=== PATIENT | male | born 1975 | race Caucasian/White ===

== ENCOUNTER 2020-12-23 19:39 | Inpatient (IN) | payer MEDICAID ==
[2020-12-22 22:45] VITALS: BP 106/68
[~2020-12-23] VITALS: Ht 188 cm; Wt 85.7 kg
--- NOTE | 2020-12-23 19:39 | NUR ---
[id number] FROM [facility] FOR CP, MIDSTERNAL, NON RADIATING X 30MINS RECORDS MANAGEMENT ANALYST GIVEN [id number] 2SPR NTG WITH RELIEF 03/04, PT AAOX2-3, DENIES ANY SOB. PLACED ON MONITOR, GOWNED, VSS. NOT IN ACUTE DISTRESS, PENDING ER PROVIDER HARRY
--- NOTE | 2020-12-23 20:03 | NUR ---
BLOOD COLLECTED AND SENT TO LAB
--- NOTE | 2020-12-23 20:04 | NUR ---
WINE BLENDER AT BS
[2020-12-23 20:12] LABS: BASOPHILS # (AUTO) 0.1 /CMM (0.0-0.2); BASOPHILS % (AUTO) 0.8 % (0.0-2.0); HEMATOCRIT 38 % (39-51); LYMPHOCYTES # (AUTO) 4.1 /CMM (0.8-4.8); LYMPHOCYTES % (AUTO) 48.3 % (20.0-44.0); MEAN CORPUSCULAR HGB CONC 34 g/dl (31.0-36.0); MEAN CORPUSCULAR VOLUME 92 fL (80-96); MONOCYTES # (AUTO) 0.6 /CMM (0.1-1.30); MONOCYTES % (AUTO) 7.2 % (2.0-12.0); NEUTROPHILS # (AUTO) 3.5 /CMM (1.8-8.9); NEUTROPHILS % (AUTO) 41.7 % (43.0-81.0); PLATELET COUNT (AUTO) 267 /CMM (150-450); RED BLOOD CELL COUNT(AUTO) 4.15 MIL/uL (4.5-6.0); WHITE BLOOD COUNT (AUTO) 8.4 K/uL (4.3-11.0)
[2020-12-23 20:21] LABS: CALCIUM, SERUM 8.7 mg/dL (8.5-10.1); CARBON DIOXIDE 27 mmol/L (21-32); CHLORIDE 101 mmol/L (98-107); CREATININE 1.1 mg/dL (0.6-1.3); GLUCOSE 89 mg/dL (74-106); POTASSIUM 3.7 mmol/L (3.5-5.1); SODIUM SERUM 139 mmol/L (136-145); UREA NITROGEN, BLOOD 12 mg/dL (7-18)
[2020-12-23] MEDS ORDERED: MAG HYDROX/AL HYDROX/SIMETH 30 ML UDC PO PRN (21:30)
[2020-12-23] MEDS ORDERED: Z GUARD REMEDY 2 OZ OINT TP PRN (21:30)
[2020-12-23] MEDS ORDERED: ONDANSETRON HCL/PF 4 MG/2 ML VIAL IVP PRN (21:30)
[2020-12-23] MEDS ORDERED: ACETAMINOPHEN 325 MG TABLET PO PRN (21:30)
[2020-12-23] MEDS ORDERED: MAGNESIUM HYDROXIDE 30 ML UDC PO PRN (21:30)
[2020-12-23] MEDS ORDERED: ZOLPIDEM TARTRATE 5 MG TABLET PO PRN (21:30)
--- NOTE | 2020-12-23 22:27 | NUR ---
REPORT GIVEN TO JANET GALVEZ FOR BRIANNA PT WILL BE TRANSPORTED TO 1ST FLOOR
--- NOTE | 2020-12-23 22:39 | NUR ---
Pt to 103 via jayne with emt and Babatunde GALVEZ
--- NOTE | 2020-12-23 22:45 | NUR ---
RN NOTE PT ARRIVED TO UNIT FROM ER VIA GURNEY UNDER ACLS PROTOCOL. PT IS ALERT AND ORIENTED X 3. SLIGHTLY SLOW TO RESPOND TO QUESTIONS BUT ANSWERS ALL CORRECTLY. ON ROOM AIR, RESPIRATIONS UNLABORED, DENIES DIFFICULTY BREATHING, WITH COMPLAINT OF 4/10 CHEST PAIN NON RADIATING, PT ALSO REQUESTED SLEEPING MEDICATION, WILL ADMINISTER PRN ORDERED, PLACED PT ON GRANTS AND CONTRACTS ASSISTANT SHOWING NSR 60S. COMPREHENSIVE BODY ASSESSMENT COMPLETED, SKIN INTACT EXCEPT WITH RED BUMP ON LEFT UNDERARM, PICTURE TAKEN, WITH LEFT HAND 20G IV PATENT AND INTACT. PLAN OF CARE DISCUSSED, CALL LIGHT WITHIN REACH, SAFETY MEASURES IN PLACE PER PROTOCOL
[2020-12-23] MEDS: HYDROCODONE/APAP 5/325MG TABLET PO PRN (22:53)
[2020-12-24] VITALS (9 sets, daily range): BP systolic 114–140; BP diastolic 65–80
--- NOTE | 2020-12-24 00:26 | NUR ---
RN NOTE SEEN AND EXAMINED BY ARELIS LEE MOLDING PRESS OPERATOR AT BEDSIDE.
--- NOTE | 2020-12-24 01:46 | NUR ---
RN NOTE PT CALLED FOR ASSISTANCE. PT STATES THAT HE DOES NOT REMEMBER WHERE HE IS AND WHY HE IS HERE. REORIENTED PT. EXPLAINED THAT PT WAS BROUGHT IN FROM [facility] BECAUSE HE WAS COMPLAINING OF CHEST PAIN AND THAT HE IS ADMITTED TO THE HOSPITAL FOR OBSERVATION. PT DENIES THAT HE CAME FROM A [facility] AND THAT HE DOES NOT HAVE CHEST PAIN. WILL CONTINUE TO MONITOR.
--- NOTE | 2020-12-24 05:58 | NUR ---
RN NOTE PT CALLED AGAIN ASKING FOR HELP. PT ASKED "WHERE AM I? WHAT AM I DOING HERE?" RN PROVIDED REORIENTATION AND EXPLAINED THE PLAN OF CARE. PT VERBALIZED UNDERSTANDING. PT DENIES CHEST PAIN AT THIS TIME. PT AMBULATED TO THE BATHROOM WITH STANDBY ASSISTANCE AND WENT BACK TO BED. WILL CONTINUE TO MONITOR.
[2020-12-24 06:22] LABS: BASOPHILS # (AUTO) 0.1 /CMM (0.0-0.2); BASOPHILS % (AUTO) 0.9 % (0.0-2.0); EOSINOPHILS % (AUTO) 2.8 % (0.0-6.0); HEMATOCRIT 40 % (39-51); HEMOGLOBIN 13.6 g/dL (13.5-17.5); LYMPHOCYTES # (AUTO) 2.7 /CMM (0.8-4.8); LYMPHOCYTES % (AUTO) 41.6 % (20.0-44.0); MEAN CORPUSCULAR HGB CONC 34 g/dl (31.0-36.0); MEAN CORPUSCULAR VOLUME 92 fL (80-96); MONOCYTES # (AUTO) 0.5 /CMM (0.1-1.30); NEUTROPHILS # (AUTO) 3.1 /CMM (1.8-8.9); NEUTROPHILS % (AUTO) 47.7 % (43.0-81.0); PLATELET COUNT (AUTO) 273 /CMM (150-450); WHITE BLOOD COUNT (AUTO) 6.5 K/uL (4.3-11.0)
[2020-12-24 06:46] LABS: CALCIUM, SERUM 9.2 mg/dL (8.5-10.1); CREATININE 0.9 mg/dL (0.6-1.3); PHOSPHORUS 3.5 mg/dL (2.5-4.9); POTASSIUM 3.6 mmol/L (3.5-5.1)
--- NOTE | 2020-12-24 07:15 | NUR ---
GOLF TOURNAMENT CONSULTANT NOTE RECEIVED REPORT FROM PM NURSE.PATIENT IN BED SLEEPING.ABLE TO WAKE UP WHILE CALLING NAME.ADMITTED WITH DIAGNOSIS OF CHEST PAIN .ON TELE MONITOR SR WITH HR 60.ON ROOM AIR.NO SOB NO DISTRESS NOTED.IV ON L HAND # 20 .INTACT AND PATENT.FALL PRECAUTIONS IN PLACE.BED ALARM ON BED IS LOW AND IN LOCKED POSITION WITH SIDE RAILS UP.WILL CONTINUE TO MONITOR.
[2020-12-24] MEDS ORDERED: HALO2TAB PO (08:47)
[2020-12-24] MEDS ORDERED: HYDR-4303 PO (08:47)
[2020-12-24] MEDS ORDERED: LORA-259 PO (08:47)
[2020-12-24] MEDS ORDERED: ALPR0.5T PO (08:47)
[2020-12-24] MEDS ORDERED: ATORVASTATIN 40 MG TABLET PO SCH (09:00)
[2020-12-24] MEDS ORDERED: ASPIRIN 81 MG TAB.CHEW PO SCH (09:00)
[2020-12-24] MEDS ORDERED: NICOTINE PATCH (21MG) 21 MG PATCH.TD24 TD SCH (09:00)
--- NOTE | 2020-12-24 09:00 | NUR ---
AUTOMOTIVE PRODUCT ENGINEER NOTE SEEN BY DATA REVIEW SPECIALIST ANASTACIA ,UPDATED ABOUT PATIENT CONDITION.PATIENT WAS TELLING THAT HE IS RESIDING IN [facility] AND NEED TO BE TRANSFERRED PER DATA REVIEW SPECIALIST.DATA REVIEW SPECIALIST MADE AWARE THAT PATIENT IS TALKING NORMALLY BUT HE HAS SOME PERIODS OF CONFUSION.BUS INSPECTOR MADE AWARE. PER BUS INSPECTOR PATIENT SHE TALK TO [facility] HE HAS PERIODS OF CONFUSION.HE DO NOT NEED TO BE TRANSFERRED.HE GOES BACK TO SAME PLACE HE COMES FROM.WILL CONTINUE TO MONITOR.NEW IV LINE INSERTED FOR CTA IN LAC#20.GOOD BLOOD RETURN NOTED.WILL CONTINUE TO MONITOR.
[2020-12-24] MEDS: HYDROCODONE/APAP 5/325MG TABLET PO PRN (11:01)
[2020-12-24] MEDS: NITROGLYCERIN 0.4 MG/TAB BOTTLE SL PRN ×3 (11:13→11:23)
--- NOTE | 2020-12-24 12:10 | NUR ---
RN NOTE 1105-PATIENT C/O CHEST PAIN .PATIENT IS ALERT ORIENTED WITH PERIODS OF CONFUSION.ABLE TO DO DAILY ACTIVITIES WITHOUT ANY INTERRUPTION.NOT RADIATING TO L ARM OR SHOULDER /NECK.PAIN LOCATED IN LEFT LOWER CHEST.ABDOMEN IS GASEOUS WHILE PERCUSSION.MYLANTA GIVEN.PRN NORCO GIVEN FOR PAIN IN THE ELEVATED RED AREA UNDER LEFT ARM PIT AND ALSO FOR PAIN.AWAITING WOUND CONSULT.NITRO GIVEN X 3 DOSES.STAT EKG DONE . MADE AWARE EKG RESULT AND PATIENT CONDITION .STILL C/O PAIN AFTER NITRO.NEW ORDER TO PLACE PATIENT BACK TO TELE MONITOR. SR HR 67 ON MONITOR. MADE AWARE THAT CTA @ 1 PM.PATIENT SIGNED FOR THE PROCEDURE.SPOKE TO BRINDA ALDANA RESPONSIBLE REPUBLICAN PER PATIENT .MADE AWARE ABOUT PATIENT CONDITION AND HE GAVE PERMISSION TO DO PROCEDURE CTA DOCTOR ORDERED.HE GO OVER HISTORY OF THE PATIENT.ASSURANCE GIVEN .TOLD THAT WILL LET HIM KNOW ONCE THE RESULT IS BACK.WILL CONTINUE TO MONITOR.
[2020-12-24] MEDS ORDERED: CT SWABBABLE VALVE TRANS SET 1 EA INFUS.SET MC ONE (12:34)
[2020-12-24] MEDS ORDERED: IV NS 0.9% 250 ML IV ONE (12:34)
[2020-12-24] MEDS ORDERED: IOHEXOL-350 100 ML VIAL IV ONE (12:34)
[2020-12-24] MEDS ORDERED: METOPROLOL TARTRATE INJ 5 MG/5 ML AMPUL ONE (12:36)
--- NOTE | 2020-12-24 13:01 | NUR ---
PROCESSING SPECIALIST NOTE PATIENT PICKED UP FOR CTA .VITAL SIGNS STABLE.NO SOB NOTED.STILL COMPLAINING OF CHEST PAIN.TOLD GETTING BETTER SLOWLY.C/O MORE PAIN WHILE PALPATING THE CHEST .PATIENT HAS A RED ELEVATED AREA IN THE ARM PIT.PATIENT WAS ABLE TO MOVE FROM BED TO WHEEL CHAIR WITH ASSIST.
[2020-12-24] MEDS ORDERED: NITROGLYCERIN 0.4 MG/TAB BOTTLE ONE (13:30)
[2020-12-24] MEDS ORDERED: NITROGLYCERIN 0.4 MG/TAB BOTTLE SL ONE (14:00)
[2020-12-24] MEDS ORDERED: IV NS 0.9% 500 ML IV PRN (14:00)
[2020-12-24] MEDS ORDERED: METOPROLOL TARTRATE INJ 5 MG/5 ML AMPUL IVP ONE (14:00)
--- NOTE | 2020-12-24 14:11 | NUR ---
MULTI SPINDLE OPERATOR NOTE PATIENT BACK FROM CTA IN STABLE CONDITION.TOLD THAT CHEST PAIN IS BETTER.VITAL SIGNS STABLE.PAIN LEVEL 3/10.WILL CONTINUE TO MONITOR.
--- NOTE | 2020-12-24 17:02 | NUR ---
RN NOTE RELAYED CTA RESULT TO . PER NIHARIKA WISE PATIENT CAN BE DISCHARGED.MUSIC LIBRARY ASSISTANT SHANTA MADE AWARE ASLO NOTIFIED THAT PATIENT HAS A LUMP IN ARM PIT IS LITTLE SWOLLEN AND RED ,NOT OPEN.AWAITING WOUND CONSULT .OK TO DISCHARGE .NO NEW MEDS.CONTINUE HOME MEDS.
[2020-12-24] MEDS ORDERED: HALOPERIDOL 5 MG TABLET PO SCH (17:57)
[2020-12-24] MEDS ORDERED: ALPRAZOLAM 0.5 MG TABLET PO PRN (18:00)
[2020-12-24] MEDS ORDERED: HYDROCODONE/APAP 5/325MG TABLET PO PRN (18:00)
[2020-12-24] MEDS ORDERED: LORAZEPAM 1 MG TABLET PO PRN (18:00)
--- NOTE | 2020-12-24 18:00 | NUR ---
PATIENT IS UNABLE TO COLLECT URINE.URINAL AT BEDSIDE.BRP.PATIENT REMINDED TO COLLECT URINE.
--- NOTE | 2020-12-24 18:08 | NUR ---
REPORT GIVEN TO [facility].SPOKE TO TERRIE WIN.MADE AWARE TO CONTINUE SAME MEDICATION.NO NEW ORDERS.WILL ATTACH LAB AND TEST RESULT.PATIENT RESPONSIBLE REPUBLICAN MR. PARRY MADE AWARE ABOUT TEST RESULT AND DISCHARGE.WILL CONTINUE TO MONITOR.
--- NOTE | 2020-12-24 18:23 | NUR ---
RN CLOSING NOTE PATIENT READY TO BE DISCHARGED.CARBURETOR EXPERT TIME IS @1999.REPORT GIVEN TO FACILITY.PATIENT IS ALERT ORIENTED WITH PERIODS OF CONFUSION.VITAL SIGNS STABLE.WILL ENDORSE TO PM NURSE FOR BRIANNA.
--- NOTE | 2020-12-24 19:30 | NUR ---
RN NOTE RECEIVED PT IN BED, ALERT WITH EPISODE OF CONFUSION, REORIENTED TO PLACE AND SITUATION. TELE MONITOR SHOWS SR WITH HR OF 63. NO S/SX OF DISTRESS NOTED. DENIES ANY PAIN AT THIS TIME. AWAITING FOR DISCHARGE. ALL SAFETY MEASURES IMPLEMENTED PER PROTOCOL, CALL LIGHT WITHIN REACH BED LOCKED IN LOWEST POSITION.
--- NOTE | 2020-12-24 20:23 | NUR ---
RN NOTE PT DISCHARGE TO [facility] PICKED UP BY 2 EMT FROM [facility]. NO SIGNS OF DISTRESS, AFEBRILE. VS STABLE. BP 127/77 HR 64 R 20 O2SAT 97 %. DENIES PAIN. Addendum: 12/24/20 at 2026 by RAFITA ZIMMER RN IV LINES REMOVED, NO SIGNS OF INFECTION NOTED.
[2020-12-27] MEDS ORDERED: MORPHINE SULFATE INJ 4 MG/ML DISP.SYRIN ONE (04:03)
[2020-12-27] MEDS ORDERED: ONDANSETRON HCL/PF 4 MG/2 ML VIAL ONE (04:03)
== END 2020-12-25 02:07 | DRG 198 ==
LOC: ER 19:45 → TELE 22:15 → TELE1 22:23 → MEDSG1 12-24 08:46 → TELE1 12-24 12:09
PROVIDERS: ADMIT Nurse Practitioner Acute Care; ATTEND Nurse Practitioner Acute Care
DX: I24.9 Acute ischemic heart disease, unspecified (principal); I42.9 Cardiomyopathy, unspecified; D63.8 Anemia in other chronic diseases classified elsewhere; G40.909 Epilepsy, unspecified, not intractable, without status epilepticus; I25.2 Old myocardial infarction; Z86.73 Personal history of transient ischemic attack (TIA), and cerebral infarction without residual deficits; Z87.891 Personal history of nicotine dependence; F99 Mental disorder, not otherwise specified; F10.21 Alcohol dependence, in remission; F19.21 Other psychoactive substance dependence, in remission; Z20.822 Contact with and (suspected) exposure to COVID-19; Z86.69 Personal history of other diseases of the nervous system and sense organs
CPT/HCPCS: 36415; 71045-TC; 75574; 80048-TC; 80061-TC; 83735-TC; 84100-TC; 84484-TC; 85025-TC; 87081-TC; 93307-TC; C9803; G0378; J2270; J2405; J3490; J7050; Q9967; U0003

== ENCOUNTER 2020-12-27 03:22 | Emergency (ER) | payer MEDICAID ==
[~2020-12-27] VITALS: Ht 182.9 cm; Wt 81.6 kg
[~2020-12-27 03:22] MED LIST: ALPR0.5T PO; HALO2TAB PO; HYDR-4303 PO; LORA-259 PO
--- NOTE | 2020-12-27 03:32 | NUR ---
pt bibra from [facility] c/o stabbing chest pain that radiates to left arm.Pt aaox4 breathing evenly and unlabored. Pt unsure of onset of pain. Pt attached to monitor and pox. Pt skin warm, dry, and intact. Pt given blanket and call light within reach
--- NOTE | 2020-12-27 04:15 | NUR ---
blood drawn and sent to lab
[2020-12-27 04:19] LABS: BASOPHILS % (AUTO) 0.7 % (0.0-2.0); EOSINOPHILS % (AUTO) 2.7 % (0.0-6.0); HEMATOCRIT 42 % (39-51); HEMOGLOBIN 13.8 g/dL (13.5-17.5); LYMPHOCYTES # (AUTO) 2.9 /CMM (0.8-4.8); MEAN CORPUSCULAR HGB CONC 33 g/dl (31.0-36.0); MEAN CORPUSCULAR VOLUME 93 fL (80-96); MONOCYTES # (AUTO) 0.4 /CMM (0.1-1.30); MONOCYTES % (AUTO) 6.8 % (2.0-12.0); NEUTROPHILS # (AUTO) 2.7 /CMM (1.8-8.9); NEUTROPHILS % (AUTO) 43.8 % (43.0-81.0); PLATELET COUNT (AUTO) 273 /CMM (150-450); RED BLOOD CELL COUNT(AUTO) 4.48 MIL/uL (4.5-6.0); WHITE BLOOD COUNT (AUTO) 6.2 K/uL (4.3-11.0)
[2020-12-27 04:26] LABS: CARBON DIOXIDE 28 mmol/L (21-32); CHLORIDE 105 mmol/L (98-107); GLUCOSE 94 mg/dL (74-106); POTASSIUM 4.6 mmol/L (3.5-5.1); SODIUM SERUM 140 mmol/L (136-145); UREA NITROGEN, BLOOD 10 mg/dL (7-18)
[2020-12-27] MEDS ORDERED: ONDANSETRON HCL/PF 4 MG/2 ML VIAL IVP ONE (04:30)
[2020-12-27] MEDS ORDERED: MORPHINE SULFATE INJ 2 MG/ML DISP.SYRIN IV ONE (04:30)
--- NOTE | 2020-12-27 06:04 | NUR ---
CALLED [facility] FOR BLS HATCH SUPERVISOR ETA 30-45MIN
--- NOTE | 2020-12-27 06:07 | NUR ---
CALLED [facility] AND GAVE REPORT TO ELOY FOR BRIANNA.
--- NOTE | 2020-12-27 06:50 | NUR ---
Patient discharged to home in stable condition. Written and verbal after care instructions given. Patient verbalizes understanding of instruction. IV removed. Catheter intact and site benign. Pressure and 4x4 applied to site. No bleeding noted. Gave report to ems with dc paperwork
[2020-12-27 07:02] VITALS: BP 118/78
== END 2020-12-27 06:50 ==
LOC: ER 03:24
DX: R07.89 Other chest pain (principal); Z79.899 Other long term (current) drug therapy
CPT/HCPCS: 36415; 71045-TC; 80048-TC; 84484-TC; 85025-TC

== ENCOUNTER 2021-01-05 18:16 | Emergency (ER) | payer MEDICAID, OTHER ==
[~2021-01-05] VITALS: Ht 175.3 cm; Wt 90.3 kg
--- NOTE | 2021-01-05 18:25 | NUR ---
[id number] [facility] B[facility] FOR WITNESSED SEIZURE, STILL SEIZING UPON EMS ARRIVAL VERSED 5MG GIVEN IVP SECURITY OPERATIONS MANAGER. BG 174. PATIENT STILL POST-ICTAL. NON-VERBAL. ON O2 5LPM WITH SPO2 OF 93%, INCREASED TO 6LPM. DR. RIBEIRO AT [facility] FOR EVAL.
[2021-01-05] MEDS ORDERED: LEVETIRACETAM (500MG) 1,000 MG in IV NS 0.9% 100 ML IV ONE (18:30)
[2021-01-05 18:32] LABS: BASOPHILS % (AUTO) 0.4 % (0.0-2.0); EOSINOPHILS % (AUTO) 1.9 % (0.0-6.0); HEMATOCRIT 43 % (39-51); HEMOGLOBIN 14.4 g/dL (13.5-17.5); LYMPHOCYTES # (AUTO) 3.9 /CMM (0.8-4.8); LYMPHOCYTES % (AUTO) 36.1 % (20.0-44.0); MEAN CORPUSCULAR HGB CONC 33 g/dl (31.0-36.0); MEAN CORPUSCULAR VOLUME 93 fL (80-96); MONOCYTES # (AUTO) 0.7 /CMM (0.1-1.30); MONOCYTES % (AUTO) 6.6 % (2.0-12.0); PLATELET COUNT (AUTO) 361 /CMM (150-450); RED BLOOD CELL COUNT(AUTO) 4.69 MIL/uL (4.5-6.0); WHITE BLOOD COUNT (AUTO) 10.9 K/uL (4.3-11.0)
--- NOTE | 2021-01-05 18:34 | NUR ---
BLOOD DRAWN AND SENT TO LAB. URINE SPECIMEN OBTAINED VIA STERILE TECHNIQUE AND SENT TO LAB.
--- NOTE | 2021-01-05 18:42 | NUR ---
PATIENT TAKEN TO CT.
[2021-01-05 18:49] LABS: ALANINE AMINOTRANSFERASE 20 U/L (12-78); ALBUMIN 4.2 g/dL (3.4-5.0); ALCOHOL, BLOOD < 3 mg/dL (0-0); ALKALINE PHOSPHATASE 69 U/L (46-116); ASPARTATE AMINOTRANSFERASE 17 U/L (15-37); BILIRUBIN,DIRECT 0.1 mg/dL (0.0-0.2); BILIRUBIN,TOTAL 0.4 mg/dL (0.2-1.0); CALCIUM, SERUM 9.2 mg/dL (8.5-10.1); CARBON DIOXIDE 20 mmol/L (21-32); CHLORIDE 99 mmol/L (98-107); CREATININE 1.5 mg/dL (0.6-1.3); GLUCOSE 226 mg/dL (74-106); POTASSIUM 3.3 mmol/L (3.5-5.1); SODIUM SERUM 138 mmol/L (136-145); TOTAL PROTEIN, SERUM 8.1 g/dL (6.4-8.2); UREA NITROGEN, BLOOD 10 mg/dL (7-18)
--- NOTE | 2021-01-05 18:52 | NUR ---
PATIENT IS MORE RESPONSIVE NOW, ABLE TO ANSWER TO SELF, PLACE AND YEAR.
--- NOTE | 2021-01-05 20:08 | NUR ---
FACESHEET AND CLINICALS FAXED TO [facility].
--- NOTE | 2021-01-05 20:53 | NUR ---
TRANSFER INFO: PT GOING TO [facility], ACCEPTED BY DR GILBERT/DR GONZALEZ, ROOM 4407 BED 1, RN FOR REPORT [phone] EXT [phone], [facility] ETA 2200
--- NOTE | 2021-01-05 21:07 | NUR ---
REPORT GIVEN TO CINDY GALVEZ AT [facility].
--- NOTE | 2021-01-05 22:50 | NUR ---
CALLED [facility] FOR UPDATED ETA, DELAYED 1 HOUR
[2021-01-06 00:30] VITALS: BP 139/80
--- NOTE | 2021-01-06 01:00 | NUR ---
PT LEFT TO [facility], CCT TRANSPORT, REPORT GIVEN TO RN. PT LEFT IN STABLE CONDITION
== END 2021-01-06 01:00 | disposition short-term general hospital (02) ==
LOC: ER 18:20
DX: G40.409 Other generalized epilepsy and epileptic syndromes, not intractable, without status epilepticus (principal); G08 Intracranial and intraspinal phlebitis and thrombophlebitis; I42.4 Endocardial fibroelastosis; R00.0 Tachycardia, unspecified; Z20.822 Contact with and (suspected) exposure to COVID-19; G93.40 Encephalopathy, unspecified
CPT/HCPCS: 36415; 70450; 71045; 80048; 80076; 80185; 80307; 80320; 82962; 85025; 85730; 87081; 87426; 93005; 96365; 99291; C9803; J1953; J7030; G0480

== ENCOUNTER 2021-01-25 06:26 | Emergency (ER) | payer OTHER ==
[~2021-01-25] VITALS: Ht 182.9 cm; Wt 86.2 kg
[2021-01-25] MEDS ORDERED: IV NS 0.9% 1,000 ML BAG IV ONE (07:00)
--- NOTE | 2021-01-25 07:05 | NUR ---
PT WAS BIBRA FOR C.O CONFUSION. PT ALERT AND RESPONSIVE, REMAINED CALM AND COOPERATIVE. IN ER BED 9, ON MONITOR. VSS. DENIED SI/HI WILL CONT TO MONITOR ,
[2021-01-25 07:12] LABS: BASOPHILS # (AUTO) 0.1 /CMM (0.0-0.2); BASOPHILS % (AUTO) 1.2 % (0.0-2.0); EOSINOPHILS % (AUTO) 2.2 % (0.0-6.0); HEMATOCRIT 42 % (39-51); HEMOGLOBIN 14.1 g/dL (13.5-17.5); LYMPHOCYTES # (AUTO) 1.7 /CMM (0.8-4.8); LYMPHOCYTES % (AUTO) 33.9 % (20.0-44.0); MEAN CORPUSCULAR HGB CONC 34 g/dl (31.0-36.0); MEAN CORPUSCULAR VOLUME 92 fL (80-96); MONOCYTES # (AUTO) 0.3 /CMM (0.1-1.30); MONOCYTES % (AUTO) 5.7 % (2.0-12.0); NEUTROPHILS # (AUTO) 2.9 /CMM (1.8-8.9); PLATELET COUNT (AUTO) 305 /CMM (150-450); RED BLOOD CELL COUNT(AUTO) 4.53 MIL/uL (4.5-6.0); WHITE BLOOD COUNT (AUTO) 5.1 K/uL (4.3-11.0)
--- NOTE | 2021-01-25 07:14 | NUR ---
PATIENT TO CT.
[2021-01-25 07:26] LABS: CALCIUM, SERUM 8.8 mg/dL (8.5-10.1); CARBON DIOXIDE 27 mmol/L (21-32); CHLORIDE 102 mmol/L (98-107); GLUCOSE 94 mg/dL (74-106); POTASSIUM 3.8 mmol/L (3.5-5.1); SODIUM SERUM 139 mmol/L (136-145); UREA NITROGEN, BLOOD 10 mg/dL (7-18)
[2021-01-25 07:31] LABS: ALANINE AMINOTRANSFERASE 21 U/L (12-78); ALCOHOL, BLOOD < 3 mg/dL (0-0); ALKALINE PHOSPHATASE 54 U/L (46-116); ASPARTATE AMINOTRANSFERASE 23 U/L (15-37); BILIRUBIN,DIRECT 0.1 mg/dL (0.0-0.2); BILIRUBIN,TOTAL 0.3 mg/dL (0.2-1.0); TOTAL PROTEIN, SERUM 7.6 g/dL (6.4-8.2)
[2021-01-25 07:33] LABS: ACETAMINOPHEN < 10 ug/ml (10-30)
[2021-01-25] MEDS ORDERED: LEVETIRACETAM (500MG) 1,000 MG in IV NS 0.9% 100 ML IV STA (07:57)
[2021-01-25] MEDS ORDERED: LEVE500T9 PO (07:59)
[2021-01-25] MEDS ORDERED: IOHEXOL-350 100 ML VIAL IV ONE (07:59)
[2021-01-25] MEDS ORDERED: CT SWABBABLE VALVE TRANS SET 1 EA INFUS.SET MC ONE (07:59)
[2021-01-25] MEDS ORDERED: IV NS 0.9% 250 ML IV ONE (07:59)
--- NOTE | 2021-01-25 10:21 | NUR ---
THE PATIENT STATED THAT HE IS NOT HOMELESS AND IS GOING TO HOME. THE PATIENT STATED HIS ADDRESS. THE PATIENT REFUSED OFFERED BUS PASS.
--- NOTE | 2021-01-25 10:22 | NUR ---
The patient is alert and oriented x3. Denies pain. Respiration regular and unlabored. Patient discharged to home in stable condition. Written and verbal after care instructions given. Patient verbalizes understanding of instruction.
[2021-01-25 10:25] VITALS: BP 123/78
--- NOTE | 2021-01-25 10:44 | NUR ---
Entertainment Centre Manager note: Entertainment Centre Manager consultation requested for transportation resources. This PROOF PLATE MAKER met with the patient who was inquiring about transportation resources for patient to return home, [address] [place] [address]. Patient states he cannot remember how he got to this ED, however is awake and oriented during this interview. This PROOF PLATE MAKER stated that the patient can be provided with a one-day metro bus pass, and patient expressed agreement. This PROOF PLATE MAKER informed RN Arely, who stated that she would provide patient with the bus pass upon discharge. No further SS interventions needed at this time.
== END 2021-01-25 10:31 | disposition home or self-care (01) ==
LOC: ER 06:28
DX: G93.49 Other encephalopathy (principal); G40.909 Epilepsy, unspecified, not intractable, without status epilepticus; Q28.2 Arteriovenous malformation of cerebral vessels; R00.1 Bradycardia, unspecified; I45.10 Unspecified right bundle-branch block; I44.0 Atrioventricular block, first degree; Z79.899 Other long term (current) drug therapy
CPT/HCPCS: 36415; 70450; 70496; 70498; 80048; 80076; 80143; 80307; 80320; 85025; 93005; 96361; 96365; 99285; J1953; J7030 ×2; J7050; Q9967; G0480

== ENCOUNTER 2021-03-18 16:24 | Inpatient (IN) | payer OTHER ==
[~2021-03-18] VITALS: Ht 180.3 cm; Wt 84.4 kg
[~2021-03-18 16:24] MED LIST changes: +LEVE500T9 PO
--- NOTE | 2021-03-18 16:27 | NUR ---
CALLED [phone] SPOKE WITH YEIMI AT [facility] NO VACCINE XANAX PRN DC NO KEPRA HALDOL 5MG ONCE A DAY DAILANTIN 100 TID
[2021-03-18] MEDS ORDERED: LEVETIRACETAM (500MG) 1,000 MG in IV NS 0.9% 100 ML IV SCH (16:30)
[2021-03-18] MEDS ORDERED: IV NS 0.9% 1,000 ML BAG IV ONE (16:30)
--- NOTE | 2021-03-18 16:34 | NUR ---
established iv line on right hand g 18, blood specimen collected and sent to the lab
--- NOTE | 2021-03-18 16:36 | NUR ---
The patient is bibra78, from B [facility] C, had seizure episode, no oral trauma, BS 132 versed 5mg given IVP on scene. The patient is not alert, responsive to tactile stimuli by making sound, groaning. Respiration regular and unlabored. Attached to the patient monitor. Will continue to monitor the patient.
--- NOTE | 2021-03-18 16:41 | NUR ---
CALLED FOR ICU BED.
--- NOTE | 2021-03-18 16:45 | NUR ---
THE PATIENT IS TAKEN TO CT
--- NOTE | 2021-03-18 16:45 | NUR ---
MOVE SHEET SUBMITTED.
--- NOTE | 2021-03-18 16:53 | NUR ---
GOT ICU BED 254
--- NOTE | 2021-03-18 16:56 | NUR ---
THE PATIENT IS BACK FROM CT
--- NOTE | 2021-03-18 17:13 | NUR ---
GOOD CATH ORDERED PER DR EDUARDO. INSERTED FR 16, URINE COLLECTED AND SENT TO THE LAB
[2021-03-18 17:20] LABS: BASOPHILS # (AUTO) 0.1 K/uL (0.0-0.2); BASOPHILS % (AUTO) 0.6 % (0.0-2.0); EOSINOPHILS % (AUTO) 2.2 % (0.0-6.0); HEMATOCRIT 48 % (39-51); HEMOGLOBIN 15.4 g/dL (13.5-17.5); LYMPHOCYTES # (AUTO) 6.2 K/uL (0.8-4.8); LYMPHOCYTES % (AUTO) 51.3 % (20.0-44.0); MEAN CORPUSCULAR HGB CONC 32 g/dl (31.0-36.0); MEAN CORPUSCULAR VOLUME 96 fL (80-96); MONOCYTES # (AUTO) 0.7 K/uL (0.1-1.30); NEUTROPHILS # (AUTO) 4.8 K/uL (1.8-8.9); NEUTROPHILS % (AUTO) 39.9 % (43.0-81.0); PLATELET COUNT (AUTO) 337 K/uL (150-450); RED BLOOD CELL COUNT(AUTO) 4.97 MIL/uL (4.5-6.0)
[2021-03-18 17:28] LABS: SERUM AMMONIA 171 umol/L (11-32)
[2021-03-18 17:33] LABS: ALANINE AMINOTRANSFERASE 36 U/L (12-78); ALBUMIN 4.6 g/dL (3.4-5.0); ALKALINE PHOSPHATASE 72 U/L (46-116); ASPARTATE AMINOTRANSFERASE 19 U/L (15-37); BILIRUBIN,DIRECT 0.1 mg/dL (0.0-0.2); BILIRUBIN,TOTAL 0.6 mg/dL (0.2-1.0); TOTAL PROTEIN, SERUM 8.5 g/dL (6.4-8.2)
--- NOTE | 2021-03-18 17:48 | NUR ---
[facility] CALLED MUSHROOM PICKER PAGED.
--- NOTE | 2021-03-18 17:53 | NUR ---
report given to nurse Macias from ICU.
[2021-03-18 18:00] LABS: BILIRUBIN,URINE NEGATIVE (NEGATIVE); COLOR,URINE YELLOW (YELLOW); LEUKOCYTE ESTERASE ,URINE NEGATIVE (NEGATIVE); NITRITE, URINE NEGATIVE (NEGATIVE); PROTEIN,URINE NEGATIVE (NEGATIVE); UGLUCOSE NEGATIVE (NEGATIVE); UROBILINOGEN,URINE 0.2 EU/dL (0.2)
--- NOTE | 2021-03-18 18:00 | NUR ---
manager multicultural notes report received from carrie supply chain intern ,
[2021-03-18 18:02] LABS: LYMPHOCYTES % (MANUAL) 45 % (16-48); MONOCYTES % (MANUAL) 5 % (0-11.0); NEUTROPHILS % (MANUAL) 50 (42-76)
[2021-03-18 18:19] LABS: CALCIUM, SERUM 9.2 mg/dL (8.5-10.1); CREATININE 1.4 mg/dL (0.6-1.3); POTASSIUM 3.7 mmol/L (3.5-5.1)
--- NOTE | 2021-03-18 18:19 | NUR ---
The patient is verbally responsive, alert and oriented to self. Denies pain. Receiving oxygen at 1.5 L/min via nasal cannula. Respiration regular and unlabored. VSS. Will continue to monitor the patient.
--- NOTE | 2021-03-18 18:34 | NUR ---
[facility] CALLED GENERATOR OPERATOR STRAIGHT BEVEL GEAR PAGED.
[2021-03-18 18:40] LABS: ABG BASE EXCESS -4.8 mmol/L; ABG OXYGEN SATURATION 93.9 % (92.0-98.5); ABG PCO2 47.8 mmHg (35.0-45.0); ABG PH 7.282 (7.350-7.450); ABG PO2 81.5 mmHg (75.0-100.0); AaDO2 61.7 mmHg; COHb 0.5 % (0.5-1.5); MetHb 0.6 % (0.0-1.5); O2Hb 92.9 % (94.0-97.0); SITE, ABG Right Radial
--- NOTE | 2021-03-18 19:03 | NUR ---
[facility] CALLED FLEXOGRAPHIC PRESS OPERATOR PAGED.
--- NOTE | 2021-03-18 19:10 | NUR ---
SKATING CARHOP NOTES REPORT GIVEN TO JANET FOR CONTINUITY OF CARE
[2021-03-18] MEDS ORDERED: MAGNESIUM HYDROXIDE 30 ML UDC PO PRN (20:00)
[2021-03-18] MEDS ORDERED: IV D5W 1,000 ML IV PRN (20:00)
[2021-03-18] MEDS ORDERED: Z GUARD REMEDY 2 OZ OINT TP PRN (20:00)
[2021-03-18] MEDS ORDERED: MAG HYDROX/AL HYDROX/SIMETH 30 ML UDC PO PRN (20:00)
[2021-03-18] MEDS ORDERED: ONDANSETRON HCL/PF 4 MG/2 ML VIAL IVP PRN (20:00)
--- NOTE | 2021-03-18 20:18 | NUR ---
fredoen taken up to assigned room for chris.
[2021-03-18 20:30] VITALS: BP 145/85
--- NOTE | 2021-03-18 20:30 | NUR ---
RECEIVED PT FROM ER AWAKE AND VERY CONFUSED, ON O2 2L VIA NC SPO2 97% NO SIGN OF RESPIRATORY DISTRESS, WITH DX OF SEIZURE, SAFELY TRANSFER FROM [place] TO BED, HOOKED TO MONITOR WITH READING SINUS TACHY 105 V/S CHECK AND RECORDED, HEAD TO ASSESSMENT DONE, INITIAL ADMISSION ASSESSMENT DONE,PT HAVE LFA# 20 AND RHAND #18 IV PATENT AND FLUSHED, PT HAVE GOOD CATHETER WITH CLOUDY YELLOW URINE WITH SEDIMENT DRAINING VIA GRAVITY, SAFETY PRECAUTION INITIATED, SEIZURE PRECAUTION ON PLACED, BED ON LOWEST POSITION AND LOCKED SIDE RAILS UP X 3 CALL LIGHT WITHIN REACH WILL CONT TO MONITOR
[2021-03-18] MEDS: PHENYTOIN SODIUM IV 100 MG/2ML VIAL IV SCH (20:37)
[2021-03-18] MEDS: ENOXAPARIN SODIUM 40 MG/0.4 ML DISP.SYRIN SQ SCH (20:37)
[2021-03-18 21:00] VITALS: BP 127/85
--- NOTE | 2021-03-18 21:10 | NUR ---
PT IS VERY CONFUSED, KEEP ON TRYING TO GET OUT OF BED, HE SAID HE NEEDS TO GO TO THE BATHROOM AND PEE, REORIENT HIM THAT HE ALREADY HAD A GOOD CATHETER AND IT IS COLLECTING HIS URINE, PT STILL INSISTING THAT HE NEED TO GO TO THE BATHROOM,DESPITE ALL THE EXPLANATION TO HIM WILL CONT TO CLOSE MONITOR HIM
[2021-03-18 21:30] VITALS: BP 133/77
[2021-03-18] MEDS ORDERED: IV NS 0.9% 1,000 ML IV ONE (21:30)
--- NOTE | 2021-03-18 21:33 | NUR ---
REPORTED TO MS [facility] REGULATORY AFFAIRS MANAGER THAT PT URINE IS VERY CLOUDY AND LACTIC ACID OF 6.5, SHE ORDER TO INCREASE D5W TO 125 ML/HR AND GIVE 1000 ML NS BOLUS X1 NOW NOTED AND CARRIED OUT
[2021-03-18 22:00] VITALS: BP 138/75
[2021-03-18] MEDS: ACETAMINOPHEN 325 MG TABLET PO PRN (22:04)
[2021-03-18] MEDS: IV D5W 1,000 ML IV PRN (22:48)
[2021-03-18 23:00] VITALS: BP 128/100
[2021-03-18] MEDS ORDERED: LORAZEPAM INJ 2 MG/ML VIAL IV ONE (23:00)
--- NOTE | 2021-03-18 23:02 | NUR ---
PT IS VERY AGITATED AND CONFUSED KEPT ON GETTING OUT OF BED, KEEP OF TELLING HE WANTS TO GO TO BATHROOM TO PEE, KEEP REORIENTING HIM THAT HE ALSREADY HAD A GOOD CATHETER THAT CATCHES HIS URINE, REPORTED IT TO FARIHA [place] WITH ORDER TO GIVE ATIVAN 1MG IVP X1 NOW NOTED AND CARRIED OUT
[2021-03-19] VITALS (21 sets, daily range): BP systolic 93–134; BP diastolic 33–82
--- NOTE | 2021-03-19 01:30 | NUR ---
RELEASE FROM RESTRAINTS FOR NOW PT AGREE TO NOT ATTEMPT TO GET OUT OF BED AND WILL JUST STAY ON BED, WILL CONT TO MONITOR
[2021-03-19] MEDS ORDERED: LEVETIRACETAM (500MG) 500 MG/5 ML VIAL IV ONE (02:55)
[2021-03-19] MEDS ORDERED: LACTULOSE 10 G/15 ML UDC (PYXIS) PO PRN (03:00)
[2021-03-19] MEDS ORDERED: LEVETIRACETAM (500MG) 500 MG in IV NS 0.9% 100 ML IV SCH (05:00)
[2021-03-19] MEDS: IV D5W 1,000 ML IV PRN ×2 (06:02→19:10)
[2021-03-19 06:03] LABS: BASOPHILS # (AUTO) 0.1 K/uL (0.0-0.2); BASOPHILS % (AUTO) 0.6 % (0.0-2.0); EOSINOPHILS % (AUTO) 0.4 % (0.0-6.0); HEMATOCRIT 37 % (39-51); HEMOGLOBIN 12.5 g/dL (13.5-17.5); LYMPHOCYTES % (AUTO) 30.6 % (20.0-44.0); MEAN CORPUSCULAR HGB CONC 34 g/dl (31.0-36.0); MEAN CORPUSCULAR VOLUME 92 fL (80-96); MONOCYTES # (AUTO) 0.7 K/uL (0.1-1.30); MONOCYTES % (AUTO) 7.3 % (2.0-12.0); NEUTROPHILS % (AUTO) 61.1 % (43.0-81.0); PLATELET COUNT (AUTO) 239 K/uL (150-450); RED BLOOD CELL COUNT(AUTO) 3.99 MIL/uL (4.5-6.0); WHITE BLOOD COUNT (AUTO) 9.8 K/uL (4.3-11.0)
[2021-03-19 06:18] LABS: CALCIUM, SERUM 8.1 mg/dL (8.5-10.1); CREATININE 0.7 mg/dL (0.6-1.3); MAGNESIUM 1.9 mg/dL (1.8-2.4); PHOSPHORUS 3.4 mg/dL (2.5-4.9); POTASSIUM 3.3 mmol/L (3.5-5.1)
--- NOTE | 2021-03-19 06:41 | NUR ---
PT ON BED SLEEPING EASY TO WAKE UP, ON O2 2L VIA NC SPO2 97% NO SIGN OF ANY RESPIRATORY DISTRESS, NO COMPLAINT OF PAIN THIS TIME, NO EPISODE OF SEIZURE THE WHOLE NIGHT, ALL NEEDS ATTENDED, BED ON LOWEST POSITION AND LOCKED SEIZURE PRECAUTION ON PLACE, SIDE RAILS UP X2 CALL LIGHT WITHIN REACH WILL ENDORSED TO AM SHIFT NURSE
--- NOTE | 2021-03-19 07:30 | NUR ---
RN OPENING NOTES RECEIVED PATIENT ASLEEP BUT EASILY ROUSABLE. APPEARS COMFORTABLE AND NOT IN ANY DISTRESS ON 2L NASAL CANNULA. SR ON BEDSIDE MONITOR. PERIPHERAL LINES X2 INTACT WITH D5W AT 100ML/HR. GOOD DRAINING BY GRAVITY. SAFETY CHECKS IN PLACE. WILL CONTINUE TO MONITOR.
[2021-03-19 07:51] LABS: PHENYTOIN (DILANTIN) 7.7 ug/ml (10.0-20.0)
[2021-03-19 08:13] LABS: THYROID STIMULATING HORMONE 0.792 uIU/mL (0.358-3.74)
[2021-03-19] MEDS: PHENYTOIN SODIUM IV 100 MG/2ML VIAL IV SCH (08:27)
--- NOTE | 2021-03-19 08:30 | NUR ---
RN NOTE SPOKE TO PHARMACY RE: DILANTIN 300MG IV PUSH ORDER, IF A PIGGYBACK WAS TO BE RECOMMENDED INSTEAD. PER PHARMACY, MEDICATION MAY BE GIVEN VERY SLOW IV PUSH. RN ADMINISTERED ACCORDINGLY AT 50MG/MIN.
[2021-03-19] MEDS: POTASSIUM CL. PREMIX PERIPHER. 50 ML IV SCH ×2 (09:00→09:52)
[2021-03-19] MEDS ORDERED: PANTOPRAZOLE 40 MG VIAL IV SCH (09:00)
[2021-03-19] MEDS: ACETAMINOPHEN 325 MG TABLET PO PRN ×2 (09:52→16:11)
--- NOTE | 2021-03-19 11:35 | NUR ---
RN NOTE EEG CURRENTLY BEING PERFORMED. PATIENT CALM AND COOPERATIVE.
--- NOTE | 2021-03-19 16:00 | NUR ---
RN NOTE SPOKE TO SHELBY DA SILVA [facility] RN (RIVKA) RE: PTS MEDICATIONS AT THEIR FACILITY AND SO SHE HAS FAXED TO [facility] THE LIST AND IS NOW IN PATIENT'S CHART. RN RIVKA ALSO CONFIRMED THAT PATIENT WASN'T VACCINATED AGAINST COVID BECAUSE PATIENT IS A NEW PATIENT TO THEM AND WASN'T AROUND WHEN THE FACILITY WAS VACCINATING PATIENTS.
--- NOTE | 2021-03-19 16:35 | NUR ---
RN NOTES DR DRISCOLL WAS NOTIFIED THAT PATIENT HAD BEEN RECEIVING PHENYTOIN 100MG PO TID AT THE FACILITY. HAS ORDERED FOR PHENYTOIN 200MG Q12HR BUT MISSED THE ROUTE. PENDING REPLY TO WHETHER IV OR PO.
--- NOTE | 2021-03-19 18:24 | NUR ---
RN CLOSING NOTES PATIENT REMAINS STABLE. CONFUSION AND SHORT TERM MEMORY LOSS NOTED, BUT CALM AND COOPERATIVE. NO EPISODES OF SEIZURE. NO COMPLAINS OF CHEST PAIN OR PAIN ELSEWHERE IN THE BODY. SATURATING 99% ON RA. SR ON BEDSIDE MONITOR. WAS ABLE TO GET UP AND SAT ON A CHAIR. MIDLINE PRESENT AT RIGHT UPPER ARM WITH D5W AT 100ML/HR. GOOD DRAINED 2200MLS. SAFETY CHECKS IN PLACE. WILL CONTINUE TO MONITOR.
--- NOTE | 2021-03-19 19:29 | NUR ---
RN NOTES REPORT GIVEN TO LEONOR GUZMAN. PATIENT WAS TRANSFERRED VIA ACLS PROTOCOL AND ARRIVED AT ROOM 105 IN STABLE CONDITION. BELONGINGS HANDED OVER TO RN.
--- NOTE | 2021-03-19 19:30 | NUR ---
RECEIVED PATIENT FROM ICU, REPORT GIVEN BY ALBERTO GALVEZ. PATIENT IS AWAKE, ALERT, ORIENTED X1. WITH PERIODS OF CONFUSION. ON ROOM AIR, O2 SAT 97%. NO SIGNS OF RESPIRATORY DISTRESS. WITH GOOD CATH PATENT AND INTACT DRAINING YELLOW URINE TO GRAVITY. IV ACCESS PING MIDLINE, PATENT AND INTACT RUNNING D5W @ 100ML/HR. NO SIGNS OF INFILTRATION. BED LOCKED AND IN LOWEST POSITION. SAFETY PRECAUTIONS MAINTAINED. CALL LIGHT WITHIN REACH. ALL NEEDS ANTICIPATED.
[2021-03-19] MEDS ORDERED: IBUPROFEN 400 MG TABLET PO PRN (20:00)
[2021-03-19] MEDS: LEVETIRACETAM (500MG) 500 MG in IV NS 0.9% 100 ML IV SCH (20:11)
[2021-03-19] MEDS: PHENYTOIN EXTENDED RELEASE 100 MG CAPSULE PO SCH (20:11)
[2021-03-19] MEDS: ENOXAPARIN SODIUM 40 MG/0.4 ML DISP.SYRIN SQ SCH (20:13)
[2021-03-20] VITALS: BP 111/67
[2021-03-20 04:00] VITALS: BP 116/62
[2021-03-20] MEDS: IV D5W 1,000 ML IV PRN ×2 (06:01→16:49)
--- NOTE | 2021-03-20 06:48 | NUR ---
RN NOTE PATIENT IS ALERT AND ORIENTED X1. WITH PERIODS OF CONFUSION. ON ROOM AIR, O2 SAT 98%. NO SIGNS OF RESPIRATORY DISTRESS. WITH GOOD CATH PATENT AND INTACT DRAINING YELLOW URINE TO GRAVITY OUTPUT 500CC. IV ACCESS PING MIDLINE, PATENT AND INTACT RUNNING D5W @ 100ML/HR. NO SIGNS OF INFILTRATION. BED LOCKED AND IN LOWEST POSITION. SAFETY PRECAUTIONS MAINTAINED. CALL LIGHT WITHIN REACH. WILL ENDORSE TO AM SHIFT.
[2021-03-20 07:19] LABS: BASOPHILS # (AUTO) 0.1 K/uL (0.0-0.2); BASOPHILS % (AUTO) 0.8 % (0.0-2.0); EOSINOPHILS % (AUTO) 2.1 % (0.0-6.0); HEMATOCRIT 36 % (39-51); HEMOGLOBIN 12.3 g/dL (13.5-17.5); LYMPHOCYTES # (AUTO) 2.8 K/uL (0.8-4.8); LYMPHOCYTES % (AUTO) 45.4 % (20.0-44.0); MEAN CORPUSCULAR HGB CONC 34 g/dl (31.0-36.0); MEAN CORPUSCULAR VOLUME 92 fL (80-96); MONOCYTES # (AUTO) 0.5 K/uL (0.1-1.30); MONOCYTES % (AUTO) 7.7 % (2.0-12.0); NEUTROPHILS # (AUTO) 2.7 K/uL (1.8-8.9); PLATELET COUNT (AUTO) 235 K/uL (150-450); RED BLOOD CELL COUNT(AUTO) 3.93 MIL/uL (4.5-6.0); WHITE BLOOD COUNT (AUTO) 6.2 K/uL (4.3-11.0)
[2021-03-20 07:37] LABS: CALCIUM, SERUM 8.6 mg/dL (8.5-10.1); CREATININE 0.7 mg/dL (0.6-1.3); POTASSIUM 3.3 mmol/L (3.5-5.1)
[2021-03-20] MEDS: LORAZEPAM INJ 2 MG/ML VIAL IV PRN ×2 (07:37→11:45)
--- NOTE | 2021-03-20 07:50 | NUR ---
RN NOTE PATIENT IS CURRENTLY IN BED WITH HOB AT SEMI FOWLERS POSITION. PATIENT IS AOX1, CONFUSED, AND DISTRAUGHT. PATIENT IS ON ROOM AIR WITH NO SIGNS OF LABORED BREATHING. BED IS LOCKED IN THE LOWEST POSITION, 3GUARD RAILS RAISED, CALL HORNE WITHIN REACH, AND ALL HOSPITAL SAFETY PRECAUTIONS ARE BEING FOLLOWED. WILL CONTINUE TO MONITOR THROUGHOUT SHIFT.
[2021-03-20 08:00] VITALS: BP 120/64
[2021-03-20 08:07] LABS: MAGNESIUM 1.8 mg/dL (1.8-2.4); PHOSPHORUS 4.3 mg/dL (2.5-4.9)
[2021-03-20] MEDS: LEVETIRACETAM (500MG) 500 MG in IV NS 0.9% 100 ML IV SCH (08:51)
[2021-03-20] MEDS: PHENYTOIN EXTENDED RELEASE 100 MG CAPSULE PO SCH ×2 (09:55→21:32)
[2021-03-20] MEDS: PANTOPRAZOLE 40 MG TABLET.DR PO SCH (09:55)
--- NOTE | 2021-03-20 09:56 | NUR ---
RN NOTE OKAY PER DR. PRO TO ADMINISTER PO MEDICATIONS. WILL CONTINUE TO MONITOR.
[2021-03-20] MEDS: POTASSIUM CHLORIDE 20 MEQ TAB.PRT.SR PO SCH ×2 (10:59→11:00)
[2021-03-20 12:00] VITALS: BP 122/60
[2021-03-20 16:00] VITALS: BP 113/66
--- NOTE | 2021-03-20 19:30 | NUR ---
RN NOTE RECEIVED PATIENT IN ROOM 105. TRANSFERRED TO ROOM 115-2 WITH ALL BELONGINGS. PATIENT IN BED. A/OX1-2, VERY CONFUSED. TOLERATING ROOM AIR. RESPIRATIONS ARE EVEN AND UNLABORED. NO S/S SOB NOTED. NO C/O PAIN AT THIS TIME. EXTERNAL TELE MONITOR READ SINUS RHYTHM . INNO APPARNT DISTRESS. IV ACCESS IN PING MID LINE RUNNING D5W@100ML/HR. GOOD CATHETER IS PRESENT, DRAINING TO GRAVITY, URINE IS YELLOW WITH SEDIMENTS. BED IS LOW AND LOCKED, HOB ELEVATED IN SEMI FOWLERS, SIDE RAILS UP X2, SEIZURE PRECAUTIONS. CALL LIGHT WITHIN REACH. SITTER AT BEDSIDE. INFORMED SITTER TO MONITOR FOR SEIZURE ACTIVITY. WILL CONTINUE TO MONITOR THROUGHOUT SHIFT.
[2021-03-20 20:00] VITALS: BP 109/65
--- NOTE | 2021-03-20 21:14 | NUR ---
RN NOTE INFORMED LEATHER SKINNER FARIHA MITCHELL THAT PATIENT CONTINUES TO GET OUT OF BED AND TRYING TO REMOVE GOOD. CANNON PINION ADJUSTER TELEPHONE ORDER SITTER, ORDER READ BACK NOTED AND CARRIED OUT.
[2021-03-20] MEDS: LEVETIRACETAM (500MG) 1,000 MG in IV NS 0.9% 100 ML IV SCH (21:32)
[2021-03-20] MEDS: ENOXAPARIN SODIUM 40 MG/0.4 ML DISP.SYRIN SQ SCH (21:33)
[2021-03-21] VITALS: BP 112/63
--- NOTE | 2021-03-21 01:07 | NUR ---
RN NOTE INFORMED HYDROGEOLOGIST PAULA CLOTH PRESSER THAT PATIENT IS BECOMING MORE AGGRESSIVE AND WISHES TO REMOVE GOOD AND IF IT OK TO DO SO. CLOTH PRESSER TELEPHONE ORDER OK TO REMOVE GOOD, MAKE SURE PATIENT URINATES WITHIN 6 HOURS OR ELSE BLADDER SCAN. ORDER READ BACK NOTED AND CARRIED OUT.
--- NOTE | 2021-03-21 01:08 | NUR ---
RN NOTE GOOD REMOVED AND PATIENT REMOVED IV ACCESS. DOES NOT WISH TO PLACE ANOTHER IV ACCESS AT THIS TIME. PATIENT HAS GOOD PO INTAKE OF FOOD AND LIQUIDS THIS SHIFT.
[2021-03-21] MEDS: ACETAMINOPHEN 325 MG TABLET PO PRN (01:11)
--- NOTE | 2021-03-21 01:50 | NUR ---
RN NOTE INFORMED KENDAL WAREHOUSE SHIPPING ASSOCIATE THAT PATIENT HAS REMOVED IV LINE, PATIENT IS HERE FOR SEIZURES, TAKES KEPPRA IV BUT NEXT DUE AT 0900. TAKES PO MEDS. WAREHOUSE SHIPPING ASSOCIATE TELEPHONE ORDER PLACE ORDER FOR MIDLINE AND THEY CAN PLACE IN AM. ORDER READ BACK NOTED AND CARRIED OUT. CALLED NURSING ADRIAN LOW RN TO INFORM ABOUT ORDER FOR MIDLINE.
[2021-03-21 04:00] VITALS: BP 120/76
--- NOTE | 2021-03-21 06:50 | NUR ---
RN NOTE PATIENT HAS NOT URINATED SINCE GOOD CATHETER REMOVAL. BLADDER SCAN CONDUCTED PER DONNIESTEIN BANQUET SERVER ORDERS. BLADDER SCAN SHOWS 285CC. ASKED PATIENT TO TRY TO URINATE IN URINAL. PATIENT TRIED AND WAS UNABLE TO URINATE. INFORMED CERTIFED REFRIGERATION OPERATOR PAULA BANQUET SERVER, TELEPHONE ORDER TO REINSERT GOOD CATHETER. ORDER READ BACK NOTED AND CARRIED OUT.
--- NOTE | 2021-03-21 06:52 | NUR ---
RN NOTE PATIENT AMBULATING IN ROOM. A/OX1-2. TOLERATING ROOM AIR. NO RESP DISTRESS. NO PAIN NOTED. TELE MONITOR SINUS RHYTHM . NO DISTRESS. NO IV ACCESS, MIDLINE ORDER. WILL ATTEMPT TO REINSERT GOOD IF PATIENT ALLOWS. BED REMAINS LOW AND LOCKED, HOB ELEVATED IN SEMI FOWLERS, SIDE RAILS UP X2, SEIZURE PRECAUTIONS. CALL LIGHT WITHIN REACH. SITTER AT BEDSIDE. WILL ENDORSE TO ONCOMING SHIFT.
[2021-03-21 07:05] LABS: BASOPHILS % (AUTO) 0.6 % (0.0-2.0); EOSINOPHILS % (AUTO) 2.5 % (0.0-6.0); HEMATOCRIT 41 % (39-51); LYMPHOCYTES % (AUTO) 35.2 % (20.0-44.0); MEAN CORPUSCULAR HGB CONC 35 g/dl (31.0-36.0); MEAN CORPUSCULAR VOLUME 91 fL (80-96); MONOCYTES # (AUTO) 0.5 K/uL (0.1-1.30); MONOCYTES % (AUTO) 6.1 % (2.0-12.0); NEUTROPHILS # (AUTO) 4.8 K/uL (1.8-8.9); NEUTROPHILS % (AUTO) 55.6 % (43.0-81.0); PLATELET COUNT (AUTO) 272 K/uL (150-450); RED BLOOD CELL COUNT(AUTO) 4.45 MIL/uL (4.5-6.0); WHITE BLOOD COUNT (AUTO) 8.5 K/uL (4.3-11.0)
[2021-03-21 07:48] LABS: ALBUMIN 4.1 g/dL (3.4-5.0); BILIRUBIN,TOTAL 0.4 mg/dL (0.2-1.0); CALCIUM, SERUM 9.3 mg/dL (8.5-10.1); CREATININE 0.9 mg/dL (0.6-1.3); PHOSPHORUS 4.5 mg/dL (2.5-4.9); POTASSIUM 3.6 mmol/L (3.5-5.1); TOTAL PROTEIN, SERUM 7.6 g/dL (6.4-8.2)
[2021-03-21] MEDS: PHENYTOIN EXTENDED RELEASE 100 MG CAPSULE PO SCH (08:54)
[2021-03-21] MEDS: LEVETIRACETAM (500MG) 1,000 MG in IV NS 0.9% 100 ML IV SCH (09:43)
[2021-03-21] MEDS: IV D5W 1,000 ML IV PRN (09:55)
[2021-03-21] MEDS: PANTOPRAZOLE 40 MG TABLET.DR PO SCH (12:19)
--- NOTE | 2021-03-21 15:08 | NUR ---
REPORT GIVEN TO LEAH IN [facility] [phone].
--- NOTE | 2021-03-21 15:30 | NUR ---
Cruz catheter dc'd with 800cc rosana clear urine in bag. Left upper extremity midline dc'd site with no bleeding or redness noted.
== END 2021-03-21 16:18 | DRG 53 ==
LOC: ER 16:33 → ICU 17:41 → TELE1 03-19 19:18
PROVIDERS: ADMIT Registered Nurse
PROC: 05H933Z Insertion of Infusion Device into Right Brachial Vein, Percutaneous Approach (ICD-10-PCS; principal; 2021-03-19)
PROC: 05HC33Z Insertion of Infusion Device into Left Basilic Vein, Percutaneous Approach (ICD-10-PCS; 2021-03-21)
DX: G40.901 Epilepsy, unspecified, not intractable, with status epilepticus (principal); G93.40 Encephalopathy, unspecified; N17.9 Acute kidney failure, unspecified; I42.4 Endocardial fibroelastosis; E72.20 Disorder of urea cycle metabolism, unspecified; D72.829 Elevated white blood cell count, unspecified; E87.2 Acidosis; Z86.73 Personal history of transient ischemic attack (TIA), and cerebral infarction without residual deficits; E87.6 Hypokalemia; Z79.899 Other long term (current) drug therapy; G89.29 Other chronic pain; Z86.79 Personal history of other diseases of the circulatory system; F41.9 Anxiety disorder, unspecified
CPT/HCPCS: 36415; 36600; 70450-TC; 71045-TC; 80048-TC; 80053-TC; 80061-TC; 80076-TC; 80177; 80185-TC; 82140-TC; 82803-TC; 82962-TC; 83605-TC; 83735-TC; 84100-TC; 84443-TC; 84484-TC; 85025-TC; 85730-TC; 87040-TC; 87081-TC; 95819-TC; C9113; G0378; J1165; J1650; J1953; J2060; J3480; J7030; J7070; U0003